=== PATIENT | female | born 1990 | race Caucasian/White ===

== ENCOUNTER 2020-08-17 14:30 | Inpatient (IN) | payer MEDICAID, OTHER ==
[~2020-08-17] VITALS: Ht 160 cm; Wt 81.6 kg
[2020-08-17] MEDS ORDERED: CARBOPROST TROMETHAMINE 250 MCG/ML AMPUL IM PRN (16:15)
[2020-08-17] MEDS ORDERED: LACTATED RINGERS 1,000 ML IV SCH (16:15)
[2020-08-17] MEDS ORDERED: METHYLERGONOVINE MALEATE 0.2 MG/ML IM PRN (16:15)
[2020-08-17] MEDS ORDERED: NALOXONE HCL 0.4 MG/ML 1ML VIAL IM PRN (16:15)
[2020-08-17] MEDS ORDERED: LIDOCAINE HCL 1% 20ML VIAL (Pyxis) INJ INFIL SCH (16:15)
[2020-08-17] MEDS ORDERED: DEXT 5%/LR + PITOCIN 20UNITS/L 1,000 ML IV SCH (16:15)
[2020-08-17] MEDS ORDERED: BUTORPHANOL TARTRATE 2 MG/ML VIAL IV PRN (16:15)
[2020-08-17] MEDS ORDERED: MISOPROSTOL 100MCG TABLET VG SCH (16:15)
[2020-08-17] MEDS ORDERED: DEXT 5%/LACTATED RINGERS 1,000 ML IV PRN (16:15)
[2020-08-17] MEDS ORDERED: ROPIVACAINE HCL/PF EPIDURAL 200 ML EPI SCH (16:45)
[2020-08-17 16:51] LABS: BASOPHILS % 0.5 % (0.0-2.0); EOSINOPHILS % 1.1 % (0.0-5.0); HEMATOCRIT. 32.3 % (36.0-48.0); HEMOGLOBIN. 10.8 g/dL (12.0-16.0); LYMPHOCYTES % 16.6 % (20.0-50.0); MEAN CORPUSCULAR HEMOGLOBIN 28.3 pg (28.0-32.0); MEAN CORPUSCULAR VOLUME 84.3 fL (81.0-99.0); MEAN PLATELET VOLUME 7.9 fl (7.4-10.4); MONOCYTES % 5.5 % (2.0-8.0); NEUTROPHILS % 76.3 % (40.0-76.0); PLATELET 363 x1000/uL (130-400); RED BLOOD CELL COUNT 3.82 mill/uL (4.2-5.4); RED CELL DISTRIBUTION WIDTH 14.6 % (11.6-14.6)
[2020-08-17 16:54] LABS: CLARITY URINE CLOUDY (CLEAR); COLOR URINE RED (YELLOW); KETONES URINE TRACE (NEGATIVE); LEUKOCYTE ESTERASE URINE 3+ (NEGATIVE); NITRITE URINE NEGATIVE (NEGATIVE); OCCULT BLOOD URINE 3+ (NEGATIVE); PROTEIN URINE 2+ (NEGATIVE); SPECIFIC GRAVITY URINE 1.008 (1.005-1.030); UROBILINOGEN URINE 0.2 E.U./dL (0.2-1.0)
[2020-08-17 17:00] LABS: INR 0.9
[2020-08-17] MEDS ORDERED: PENICILLIN G POTASSIUM 5 MMU in DEXT 5% WATER 100 ML IV SCH (17:00)
[2020-08-17] MEDS: LACTATED RINGERS 1,000 ML IV SCH ×2 (17:07→18:50)
[2020-08-17 17:24] LABS: *BENZODIAZEPINES SCREEN URINE NEGATIVE (NEGATIVE)
[2020-08-17 17:25] LABS: *AMPHETAMINES SCREEN URINE NEGATIVE (NEGATIVE); *BARBITURATES SCREEN URINE NEGATIVE (NEGATIVE); *COCAINE SCREEN URINE NEGATIVE (NEGATIVE); CANNABINOID URINE SCREEN NEGATIVE (NEGATIVE); METHADONE URINE SCREEN NEGATIVE (NEGATIVE); OPIATES URINE SCREEN NEGATIVE (NEGATIVE); PHENCYCLIDINE URINE SCREEN NEGATIVE (NEGATIVE)
[2020-08-17 17:36] LABS: HEPATITIS B SURFACE ANTIGEN NEGATIVE
[2020-08-17] MEDS ORDERED: PENICILLIN G POTASSIUM 2.5 MMU in DEXTROSE 5% WATER 50 ML IV SCH ×2 (21:00→22:30)
[2020-08-17] MEDS: DEXT 5%/LR + PITOCIN 20UNITS/L 1,000 ML IV SCH (22:05)
[2020-08-17] MEDS ORDERED: DIPHENHYDRAMINE 25MG CAPSULE PO PRN (22:30)
[2020-08-17] MEDS ORDERED: GLYCERIN/WITCH HAZEL LEAF MEDICATED PAD TOP PRN (22:30)
[2020-08-17] MEDS ORDERED: HEMORRHOIDAL SUPP PR PRN (22:30)
[2020-08-17] MEDS ORDERED: LANOLIN OINT 7GM TUBE TOP PRN (22:30)
[2020-08-17] MEDS ORDERED: BENZOCAINE/LANOLIN/ALOE VERA SPRAY TOP PRN (22:30)
[2020-08-17] MEDS ORDERED: IBUPROFEN 400MG TABLET PO PRN (22:30)
[2020-08-17] MEDS ORDERED: ACETAMINOPHEN WITH CODEINE 300/30MG TABLET PO PRN (22:30)
[2020-08-17] MEDS ORDERED: BISACODYL 10MG SUPP PR PRN (22:30)
[2020-08-18] VITALS (7 sets, daily range): BP systolic 92–130; BP diastolic 51–78
[2020-08-18] MEDS: DEXT 5%/LR + PITOCIN 20UNITS/L 1,000 ML IV SCH (01:35)
[2020-08-18] MEDS: IBUPROFEN 800MG TABLET PO PRN ×2 (01:36→08:20)
[2020-08-18 07:03] LABS: BASOPHILS % 0.2 % (0.0-2.0); EOSINOPHILS % 0.4 % (0.0-5.0); HEMATOCRIT. 25.4 % (36.0-48.0); HEMOGLOBIN. 8.4 g/dL (12.0-16.0); LYMPHOCYTES % 13.3 % (20.0-50.0); MEAN CORPUSCULAR VOLUME 84.7 fL (81.0-99.0); MEAN PLATELET VOLUME 7.6 fl (7.4-10.4); MONOCYTES % 6.7 % (2.0-8.0); NEUTROPHILS % 79.4 % (40.0-76.0); PLATELET 273 x1000/uL (130-400); RED CELL DISTRIBUTION WIDTH 14.7 % (11.6-14.6)
[2020-08-18] MEDS: MAGNESIUM/ALUMINUM HYDROXIDE/SIMETHICONE 30ML UDC PO SCH ×4 (07:30→22:31)
[2020-08-18] MEDS: SIMETHICONE 80MG TABLET CHEW PO SCH ×4 (08:20→22:31)
[2020-08-18] MEDS: FERROUS SULFATE 325MG TABLET PO SCH ×3 (08:20→17:59)
[2020-08-18] MEDS: PRENATAL VIT/FE FUMARATE/FA TABLET PO SCH (08:21)
[2020-08-18] MEDS ORDERED: TETANUS, DIPHTHERIA, PERTUSSIS VAC/PF 0.5ML (>7YR OLD) IM ONE (09:00)
[2020-08-18 15:16] LABS: BASOPHILS % 0.7 % (0.0-2.0); EOSINOPHILS % 1.5 % (0.0-5.0); HEMOGLOBIN. 8.5 g/dL (12.0-16.0); LYMPHOCYTES % 18.4 % (20.0-50.0); MEAN CORPUSCULAR VOLUME 85.2 fL (81.0-99.0); MEAN PLATELET VOLUME 7.4 fl (7.4-10.4); MONOCYTES % 6.8 % (2.0-8.0); NEUTROPHILS % 72.6 % (40.0-76.0); PLATELET 248 x1000/uL (130-400); RED BLOOD CELL COUNT 2.93 mill/uL (4.2-5.4); RED CELL DISTRIBUTION WIDTH 14.8 % (11.6-14.6)
[2020-08-18] MEDS: CEFAZOLIN 1000MG PREMIX 50 ML IV SCH (18:45)
[2020-08-18] MEDS ORDERED: DOCUSATE SODIUM 100MG CAPSULE PO SCH (21:00)
[2020-08-19] MEDS: CEFAZOLIN 1000MG PREMIX 50 ML IV SCH ×2 (00:30→06:16)
[2020-08-19] MEDS: IBUPROFEN 800MG TABLET PO PRN ×2 (00:37→08:25)
[2020-08-19 04:00] VITALS: BP 103/56
[2020-08-19 07:12] LABS: BASOPHILS % 0.7 % (0.0-2.0); EOSINOPHILS % 2.7 % (0.0-5.0); HEMATOCRIT. 25.2 % (36.0-48.0); HEMOGLOBIN. 8.4 g/dL (12.0-16.0); LYMPHOCYTES % 23.5 % (20.0-50.0); MEAN CORPUSCULAR HEMOGLOBIN 28.5 pg (28.0-32.0); MEAN CORPUSCULAR VOLUME 85.9 fL (81.0-99.0); MEAN PLATELET VOLUME 7.7 fl (7.4-10.4); MONOCYTES % 7.6 % (2.0-8.0); NEUTROPHILS % 65.5 % (40.0-76.0); PLATELET 260 x1000/uL (130-400); RED BLOOD CELL COUNT 2.94 mill/uL (4.2-5.4); RED CELL DISTRIBUTION WIDTH 14.6 % (11.6-14.6)
[2020-08-19 07:30] VITALS: BP 108/63
[2020-08-19] MEDS ORDERED: IBUP-2029 MT (08:01)
[2020-08-19] MEDS: MAGNESIUM/ALUMINUM HYDROXIDE/SIMETHICONE 30ML UDC PO SCH (08:24)
[2020-08-19] MEDS: PRENATAL VIT/FE FUMARATE/FA TABLET PO SCH (08:24)
[2020-08-19] MEDS: FERROUS SULFATE 325MG TABLET PO SCH (08:24)
[2020-08-19] MEDS: SIMETHICONE 80MG TABLET CHEW PO SCH (08:25)
== END 2020-08-19 16:40 | disposition home or self-care (01) | DRG 560 ==
LOC: 8 EST LDRP 14:30 → OBSVTOIN 14:30 → 8EST NSY 14:44 → 8 EST LDRP 15:25 → 8EST 08-18 01:55
PROVIDERS: ADMIT Obstetrics & Gynecology; ATTEND Obstetrics & Gynecology
PROC: 10E0XZZ Delivery of Products of Conception, External Approach (ICD-10-PCS; principal; 2020-08-17)
PROC: 3E0R3BZ Introduction of Anesthetic Agent into Spinal Canal, Percutaneous Approach (ICD-10-PCS; 2020-08-17)
PROC: 00HU33Z Insertion of Infusion Device into Spinal Canal, Percutaneous Approach (ICD-10-PCS; 2020-08-17)
DX: O99.02 Anemia complicating childbirth (principal); D62 Acute posthemorrhagic anemia; Z37.0 Single live birth; Z3A.39 39 weeks gestation of pregnancy; D72.829 Elevated white blood cell count, unspecified; O98.82 Other maternal infectious and parasitic diseases complicating childbirth; O99.52 Diseases of the respiratory system complicating childbirth
CPT/HCPCS: 36415; 80305; 81003; 85025; 86592; 86703; 86762; 86850; 86900; 87340; 90715; 99281; J0690; J2540; J2590; J2795; J7060; J7120; A4315